=== PATIENT | male | born 1985 | race Caucasian/White ===

== ENCOUNTER 2016-10-23 09:20 | Emergency (ER) | payer OTHER | END 2016-10-23 10:17 | disposition left against medical advice (07) | LOC: ER 09:20 | DX: Z53.21 Procedure and treatment not carried out due to patient leaving prior to being seen by health care provider (principal) ==

== ENCOUNTER 2016-10-23 12:56 | Emergency (ER) | payer OTHER ==
[2016-10-23 13:27] LABS: ABSOLUTE LYMPHOCYTES (AUTO) 1.8 10^3/uL (0.5-4.7); ABSOLUTE MONOCYTES (AUTO) 0.9 10^3/uL (0.1-1.4); ABSOLUTE NEUT (AUTO) 8.3 10^3/uL (1.7-8.2); BASOPHILS % (AUTO) 0.3 % (0-2); HEMATOCRIT 37.9 % (37.9-51.0); HGB HCT DIFFERENCE 1.1; LYMPHOCYTES % (AUTO) 16.7 % (13-45); MEAN CORPUSCULAR HEMOGLOBIN 29.7 pg (27.0-33.4); MEAN CORPUSCULAR HGB CONC 34.4 g/dL (32.0-36.0); MEAN CORPUSCULAR VOLUME 86 fl (80-97); MONOCYTES % (AUTO) 7.7 % (3-13); RED BLOOD COUNT 4.39 10^6/uL (4.35-5.55); RED CELL DISTRIBUTION WIDTH 12.9 % (11.5-14.0); SEGMENTED NEUTROPHILS % (AUTO) 75.3 % (42-78)
[2016-10-23 13:44] LABS: ALANINE AMINOTRANSFERASE 78 U/L (21-72); ALBUMIN 4.4 g/dL (3.5-5.0); ALCOHOL < 10 mg/dL (NONE DETECTED); ALKALINE PHOSPHATASE 64 U/L (38-126); ANION GAP 11 (5-19); ASPARTATE AMINO TRANSFERASE 55 U/L (17-59); BILIRUBIN,DIRECT 0.3 mg/dL (0.0-0.4); BILIRUBIN,TOTAL 0.9 mg/dL (0.2-1.3); BLOOD UREA NITROGEN 16 mg/dL (7-20); CALCIUM 9.3 mg/dL (8.4-10.2); CARBON DIOXIDE 26 mmol/L (22-30); CHLORIDE 103 mmol/L (98-107); CREATININE RESULT 0.79 mg/dL (0.52-1.25); GLUCOSE 103 mg/dL (75-110); POTASSIUM 4.1 mmol/L (3.6-5.0); TOTAL PROTEIN 6.9 g/dL (6.3-8.2)
--- NOTE | 2016-10-23 14:00 | ER Document Report ---
ED General - General Stated Complaint: PSYCH EVAL Mode of Arrival: Medic Information source: Patient, Emergency Med Personnel, [facility] Records Notes: 30 yr old bipolar male presents with ems with concerns of odd behavior. Pt was here earlier requesting dapkote refill but immediately left prior to being seen. Pt went to a pharmacy and was acting inappropriately and brought in - HPI Onset: Just prior to arrival Onset/Duration: Sudden Quality of pain: No pain Severity: Mild Pain Level: Denies Associated symptoms: Other Exacerbated by: Denies Relieved by: Denies Similar symptoms previously: Yes Recently seen / treated by doctor: Yes Past Medical History - Social History Smoking Status: Current Every Day Smoker Cigarette use (# per day): Yes Chew tobacco use (# tins/day): No Smoking Education Provided: No Family History: Reviewed & Not Pertinent Psychiatric Medical History: Reports: Hx Bipolar Disorder Review of Systems - Review of Systems Notes: REVIEW OF SYSTEMS: CONSTITUTIONAL : Denies fever, chills, or sweats. Denies recent illness. EENT: Denies eye, ear, throat, or mouth pain or symptoms. Denies nasal or sinus congestion or discharge. Denies throat, tongue, or mouth swelling or difficulty swallowing. CARDIOVASCULAR: Denies chest pain. Denies palpitations or racing or irregular heart beat. Denies ankle edema. RESPIRATORY: Denies cough, cold, or chest congestion. Denies shortness of breath, difficulty breathing, or wheezing. GASTROINTESTINAL: Denies abdominal pain or distention. Denies nausea, vomiting , or diarrhea. Denies blood in vomitus, stools, or per rectum. Denies black, tarry stools. Denies constipation. GENITOURINARY: Denies difficulty urinating, painful urination, burning, frequency, blood in urine, or discharge. MUSCULOSKELETAL: Denies back or neck pain or stiffness. Denies joint pain or swelling. SKIN: Denies rash, lesions or sores. HEMATOLOGIC : Denies easy bruising or bleeding. LYMPHATIC: Denies swollen, enlarged glands. NEUROLOGICAL: Denies confusion or altered mental status. Denies passing out or loss of consciousness. Denies dizziness or lightheadedness. Denies headache. Denies weakness or paralysis or loss of use of either side. Denies problems with gait or speech. Denies sensory loss, numbness, or tingling. Denies seizures. PSYCHIATRIC: Admits to feeling manic ALL OTHER SYSTEMS REVIEWED AND NEGATIVE. Dictation was performed using [employer] voice recognition software PHYSICAL EXAMINATION: GENERAL: Well-appearing, well-nourished and in no acute distress. HEAD: Atraumatic, normocephalic. EYES: Pupils equal round and reactive to light, extraocular movements intact, sclera anicteric, conjunctiva are normal. ENT: Nares patent, oropharynx clear without exudates. Moist mucous membranes. NECK: Normal range of motion, supple without lymphadenopathy LUNGS: Breath sounds clear to auscultation bilaterally and equal. No wheezes rales or rhonchi. HEART: Regular rate and rhythm without murmurs ABDOMEN: Soft, nontender, nondistended abdomen. No guarding, no rebound. No masses appreciated. Musculoskeletal: Normal range of motion, no pitting or edema. No cyanosis. NEUROLOGICAL: Cranial nerves grossly intact. Normal speech, normal gait. Normal sensory, motor exams PSYCH: Normal mood, normal affect. SKIN: Warm, Dry, normal turgor, no rashes or lesions noted. Course - Re-evaluation Re-evalutation: 10/23/16 14:03 Patient was given medication prior to arrival, is quite calm at this time. Medically stable, lab work level has been ordered I will have the patient seen by [facility] - Laboratory Result Diagrams: 10/23/16 13:10 10/23/16 13:10 Laboratory results interpreted by me: 10/23/16 10/23/16 13:10 13:10 WBC 11.0 H Hgb 13.0 L Absolute Neutrophils 8.3 H ALT 78 H Salicylates < 1.0 L Acetaminophen < 10 L Discharge - Discharge Clinical Impression: Bipolar I disorder Condition: Stable Disposition: PSYCH HOSP/UNIT
[2016-10-23 14:16] LABS: APPEARANCE,URINE SLIGHTLY-CLOUDY; BILIRUBIN,URINE NEGATIVE (NEGATIVE); GLUCOSE, URINE NEGATIVE (NEGATIVE); KETONES,URINE 20 mg/dL (NEGATIVE); LEUKOCYTE ESTERASE,URINE NEGATIVE (NEGATIVE); NITRITE,URINE NEGATIVE (NEGATIVE); PROTEIN,URINE NEGATIVE (NEGATIVE); URINE SPECIFIC GRAVITY 1.017; UROBILINOGEN,URINE NEGATIVE mg/dL (<2.0)
[2016-10-23] MEDS ORDERED: DIPHENHYDRAMINE HCL 50 MG/ML VIAL IM ONE (14:20)
[2016-10-23] MEDS ORDERED: HALOPERIDOL LACTATE INJ 5 MG/1 ML VIAL IM ONE (14:20)
[2016-10-23] MEDS ORDERED: LORAZEPAM INJ 2 MG/1 ML VIAL IM ONE ×2 (14:20→23:08)
[2016-10-23 14:29] LABS: URINE BARBITURATES SCREEN NEGATIVE; URINE METHADONE SCREEN NEGATIVE; URINE OPIATES LOW NEGATIVE; URINE PHENCYCLIDINE SCREEN NEGATIVE
--- NOTE | 2016-10-23 15:14 | PSYCHOLOGICAL NOTE ---
Psych Note - Psych Note Psych Note: Patient is a 30 year old male who presents via EMS from a pharmacy where he was reported by pharmacy staff to be acting belligerent. Note, patient presented to the ED earlier this morning to request a refill for his Depakote; however, left after he stated he was not seen in a time manner (less than 20 minutes). Patient is reportedly diagnosed with Bipolar Disorder. Patient received IM medications to assist him in remaining calm for his safety due to agitated behavior and is in 4pt restraints. Attempted to evaluate patient; however, he is sleeping and unable to arouse to his name. Will track patient and attempt at a later time.
--- NOTE | 2016-10-23 17:52 | EKG REPORT ---
SEVERITY:- ABNORMAL ECG - SINUS RHYTHM PROLONGED QT INTERVAL : Confirmed by: Deon Hubbard MD 23-Oct-2016 17:51:24
[2016-10-24] MEDS ORDERED: DIVALPROEX SODIUM 250 MG TABLET.DR PO ONE (09:21)
[2016-10-24] MEDS ORDERED: DIVALPROEX SODIUM 500 MG TAB.SR.24H PO ONE (10:35)
[2016-10-24] MEDS ORDERED: OLANZAPINE 5 MG TAB.RAPDIS PO ONE (10:35)
--- NOTE | 2016-10-24 10:37 | ER Document Report ---
Doctor's Note Notes: 10/24/16 10:36 Patient was seen this morning pacing the floor talking to the galloway and somewhat agitated. He received Ativan last night. He was not started on his Depakote that he originally came for. He was given a 500 mg dose of immediate release Depakote, while waiting for the psychiatry personnel to see him and to confirm his medications.. After he was seen, they requested I add an additional thousand milligrams Depakote and 10 mg of Zyprexa Zydis. The plan is to reevaluate him later today and attempted to discharge. 10/24/16 16:01 The plan at this time is to continue the patient's medications and discharge him tomorrow when a friend comes to get him around noon.
--- NOTE | 2016-10-24 15:37 | PSYCHOLOGICAL NOTE ---
Psych Note - Psych Note Psych Note: Patient is a 30 year old male who presented yesterday twice, initially as a walk in who left abruptly, and then again via EMS directly from a pharmacy where he was reportedly agitated and belligerent. Patient was reportedly administered medications by EMS to assist him in remaining calm, as well as in the ER and placed in 4pt restraints. Patient this morning is pacing and states he only needs his Depakote. He states he is prescribed Depakote extended release 1500 mg at night. Patient states he was discharged from the [facility] last Monday. He states he was unable to fill his prescriptions due to time of day upon discharge and by the time Monday came around his medication had worn off and he had to get back to the ER at [facility]. Patient states they again gave him doses of his Depakote and discharged. He states he was still manic and instead of destroying property and things around him he decided to "walk it off." Patient reports he walked all the way from [place], near the [facility] area. He states he thought that would be a better decision than becoming aggressive, which she states he tends to do. Patient lyla reports right now he is in the anxious phase of his francis and would like to address this as soon as possible. Patient states [facility] and can fill them upon discharge. Patient denies suicidal/homicidal ideations. Patient denies any history of suicide attempts. Patient states his former nguyen sergeant came to visit him last night and asked if I could call him. He states, "we love each other and that man will do anything for me." She reports he would like for the hospital to give him a dose of his medications and then discharged so he can return home and follow through with his VA application. He states his sister who resides in [place] is assisting him in securing his [employer]'s benefits. He denies knowing a phone number for his sister. Patient was not known to have a phone on his person upon checking in. Person to notify, Giles Chu : automated number for [employer]. Did not leave a message Patient's sister, Angie Fajardo states: the patient was diagnosed with Bipolar around 2 weeks ago and believed he was on a mission and was walking around [place] and was stopped by law enforcement. He willingly went to [facility], and spent about 10 days. She states when he was manic, he had no vehicle and no cell phone but lost it during the 2 day mission by throwing it away. She states the vehicle was broken down already and when he got out of the hospital, he had no way to get to fill his prescription. She states she lost communication Monday night (via FB msng) but found out later last night that he had contacted a friend and was in [place]. She states she filed a missing person's report, and was later informed that he was picked up after walking to [place] barefoot. Sister denies knowledge of familial history of Bipolar Disorder, but does state that he has struggled with highs and lows for about 10 years. She states while in [place], and upon discharge from the hospital, he packed up all of his belongings and the room he was staying in / friend's house is no longer an option. She states she is concerned that if he is discharged he will decompensate. She states she has spoken with him on the phone and he is in agreement to return to [place] to their parents and resume his [place] care there. She states he was previously set up through [facility] prior to his move to [place] in July. Sister states she is waiting for their mother to arrive to her home in [facility], and they plan to arrive as soon as possible tomorrow, likely by noon. Tyree Mccain, states he was his former Gunny in the [facility] for 3-4 years and had not spoken on the phone or in person. Mr Mccain reports to his knowledge the patient was at [facility] yesterday and had an episode, and the patient provided his name. He states the employee looked him up on Face Book and sent his a message. He states he would possibly give patient a ride, but it would not be until tonight after work and would need to know where he is going. Patient is alert and oriented. Mood is manic and labile with congruent affect. Patient denies suicidal/homicidal ideations, intent, plan, means. Patient denies A/VH; delusions not noted. Thought processes were tangential. Conversational speech was labile for rate, tone, and prosody. Intellectual abilities were estimated within average range. Attention and focus are poor. Insight, judgment, impulse control were poor. Unspecified Bipolar and Related Disorder Patient is recommended to remain under involuntary commitment for potential discharge tomorrow. Patient's level of francis remains high despite reinstating his Depakote with the addition of Zyprexa. Patient's sister will present tomorrow (Monday) reportedly to take the patient back to [place] and then eventually back to [place]. Patient remains risk for severe decompensation if he were to be discharged. Patient walked barefoot from [place], and 2 weeks ago had a manic episode where he thought he was on a mission and discarded his identification cards and telephone. I consulted with Dr. Cai in regards to the care and management of this patient. ANAMARIA Bowdne. is in agreement with disposition and recommendations.
[2016-10-24] MEDS ORDERED: BENZTROPINE MESYLATE 1 MG TABLET PO SCH (16:00)
[2016-10-24] MEDS ORDERED: BENZTROPINE MESYLATE 1 MG TABLET PO ONE (16:30)
[2016-10-24] MEDS: OLANZAPINE 5 MG TABLET PO SCH (18:48)
[2016-10-24] MEDS ORDERED: HALOPERIDOL 5 MG TABLET PO ONE (22:54)
[2016-10-24] MEDS ORDERED: CLONAZEPAM 1 MG TABLET PO ONE (22:55)
[2016-10-25] MEDS ORDERED: IBUPROFEN 600 MG TABLET PO ONE (05:21)
[2016-10-25] MEDS: OLANZAPINE 5 MG TABLET PO SCH (09:01)
--- NOTE | 2016-10-25 09:21 | ER Document Report ---
ED Psych Disorder / Suicide - General Mode of Arrival: Medic Information source: Patient, Parent, Relative - HPI Associated symptoms: Normal affect, Normal mood <RENATO LOBATO - Last Filed: 10/25/16 09:10> <EMILY MONTES - Last Filed: 10/25/16 09:34> - General Chief Complaint: Psych Problem Stated Complaint: PSYCH EVAL - HPI Notes: Patient is a 30 year old male who presented yesterday twice, initially as a walk in who left abruptly, and then again via EMS directly from a pharmacy where he was reportedly agitated and belligerent. Patient was reportedly administered medications by EMS to assist him in remaining calm, as well as in the ER and placed in 4pt restraints. Patient this morning is pacing and states he only needs his Depakote. He states he is prescribed Depakote extended release 1500 mg at night. Patient states he was discharged from the [place], possibly last Monday. He states he was unable to fill his prescriptions due to time of day upon discharge and by the time Monday came around his medication had worn off and he had to get back to the ER at [facility]. Patient states they again gave him doses of his Depakote and discharged. He states he was still manic and instead of destroying property and things around him he decided to "walk it off." Patient reports he walked all the way from [place], near the [facility] area. He states he thought that would be a better decision than becoming aggressive, which she states he tends to do. Patient poor reports right now he is in the anxious phase of his francis and would like to address this as soon as possible. Patient states he has prescriptions at [facility] and can fill them upon discharge. Patient denies suicidal/homicidal ideations. Patient denies any history of suicide attempts. Patient states his former nguyen pillaiant came to visit him last night and asked if I could call him. He states, "we love each other and that man will do anything for me." She reports he would like for the hospital to give him a dose of his medications and then discharged so he can return home and follow through with his VA application. He states his sister who resides in [place] is assisting him in securing his [employer]'s benefits. He denies knowing a phone number for his sister. Patient was not known to have a phone on his person upon checking in. Clinician conduct check in with patient Patient's sister, Angie Fajardo and patient's mother have arrived to flower buncher or picker patient. they will be driving to [place] to flower buncher or picker the patient's belongings and continue on to [place] so the patient will have the family as a support. Patient states that they family will be assisting him in getting set up with the [facility] for services. Patient is not currently demonstrating aggression or manic behaviours. Patient is alert and oriented. Mood is euthymic with congruent affect. Patient denies suicidal/homicidal ideations, intent, plan, means. Patient denies A/VH; delusions not noted. Thought processes were tangential. Conversational speech was within normal rate, tone, and prosody. Intellectual abilities were estimated within average range. Attention and focus are fair. Insight, judgment, impulse control were fair. Unspecified Bipolar and Related Disorder Patient is recommended for rescind and is considered psychiatrically clear for discharge. Patient's family is here to assist the patient in moving back to [place] to be closer to family for support system. Patient will be following up with the [facility]. Dr. Cai was consulted on the care and management of this patient. Attending physician is in agreement with recommendations and disposition. (RENATO LOBATO) - Related Data Allergies/Adverse Reactions: No Known Allergies Allergy (Unverified 10/24/16 05:54) Home Medications: Current Home Medications Divalproex Sodium [Depakote ER 500 mg Tab.sr] 1,500 mg PO QHS 10/24/16 [History] Lorazepam [Ativan 1 mg Tablet] 1 mg PO BIDP PRN 10/24/16 [History] Quetiapine Fumarate [Seroquel] 200 mg PO QHS 10/24/16 [History] Ziprasidone HCl [Geodon] 80 mg PO QHS 10/24/16 [History] Past Medical History - General Information source: Patient, Emergency Med Personnel, [facility] Records - Social History Smoking Status: Current Every Day Smoker Cigarette use (# per day): Yes Chew tobacco use (# tins/day): No Family History: Reviewed & Not Pertinent Psychiatric Medical History: Reports: Hx Bipolar Disorder <RENATO LOBATO - Last Filed: 10/25/16 09:10> Course - Laboratory Result Diagrams: 10/23/16 13:10 10/23/16 13:10 <RENATO LOBATO - Last Filed: 10/25/16 09:10> - Laboratory Result Diagrams: 10/23/16 13:10 10/23/16 13:10 <EMILY MONTES - Last Filed: 10/25/16 09:34> - Vital Signs Vital signs: Temp Pulse Resp BP Pulse Ox 98.0 F 102 H 20 132/83 H 97 10/25/16 09:31 10/25/16 09:31 10/25/16 09:31 10/25/16 09:31 10/25/16 09:31 - Laboratory Laboratory results interpreted by me: 10/23/16 10/23/16 10/23/16 13:10 13:10 13:10 WBC 11.0 H Hgb 13.0 L Absolute Neutrophils 8.3 H ALT 78 H Urine Ketones Salicylates < 1.0 L Acetaminophen < 10 L Valproic Acid 24.4 L 10/23/16 14:00 WBC Hgb Absolute Neutrophils ALT Urine Ketones 20 H Salicylates Acetaminophen Valproic Acid Discharge <RENATO LOBATO - Last Filed: 10/25/16 09:10> <EMILY MONTES - Last Filed: 10/25/16 09:34> - Discharge Clinical Impression: Bipolar 1 disorder Condition: Stable Disposition: HOME, SELF-CARE Additional Instructions: Bipolar Disorder Bipolar disorder is also called manic-depressive disorder. Depression alternates with brain hyperactivity called francis. Each phase lasts from several days to a few weeks. We don't know exactly what causes bipolar disorder , but it's treatable. During the "manic phase," you may feel elated and energetic. You may have racing thoughts, rapid speech, increased activity, and grandiose ideas. During this time, you may not realize how poor your judgement is. Inappropriate spending, drug abuse, excessive alcohol use, marriage problems, and irresponsible sexual behavior are common during the manic phase. During the "depressive phase," you might feel depressed, guilty, worthless , fatigued, and unable to concentrate. You might have thoughts of suicide. Good treatments are available for bipolar disorder. [place] is a classic drug for bipolar disorder, and is still often useful. If the manic phase is very mild, an antidepressant alone can be prescribed. If the manic phase is very severe, an antipsychotic medicine (such as Haldol) may be needed. The treatment must be matched to your symptoms, so it's important to work closely with your psychiatric care provider. Contact your physician, the hospital emergency center, crisis line, or your counsellor if you are losing control or having self-destructive thoughts. Follow up; Please continue to take your medications as prescribed and follow up with the [facility].
[2016-10-25 09:31] VITALS: BP 132/83
[2016-10-25] MEDS ORDERED: DIVALPROEX SODIUM 500 MG TAB.SR.24H PO SCH (10:00)
[2016-10-25] MEDS ORDERED: BENZTROPINE MESYLATE 1 MG TABLET PO SCH (17:00)
== END 2016-10-25 09:45 | disposition home or self-care (01) ==
LOC: ER 12:56
DX: F31.9 Bipolar disorder, unspecified (principal); F17.210 Nicotine dependence, cigarettes, uncomplicated; Z78.1 Physical restraint status
CPT/HCPCS: 93005; 99285; 96372; 36415; 80307 ×4; 85025; 80053; 81001; 80164; 93010; J3490; J1200; J1630; J2060